=== PATIENT | male | born 1950 | race Native Hawaiian/Other Pacific Islander ===

== ENCOUNTER 2017-11-25 13:57 | Outpatient (CLI) | payer OTHER ==
[2017-11-25] MEDS ORDERED: DIAZEPAM10 MG PO (16:16)
[2017-11-25] MEDS ORDERED: NUCYNTA100 MG PO (16:16)
[2017-11-25] MEDS ORDERED: BENA20TA2 PO (16:17)
[2017-11-25] MEDS ORDERED: LEVO0.1224 PO (16:18)
[2017-11-25] MEDS ORDERED: ZANTAC300 MG PO (16:18)
[2017-11-25] MEDS ORDERED: POTASSIUM CHLO20 ME1 PO (16:19)
== END 2017-11-25 14:01 | disposition short-term general hospital (02) ==
LOC: AMB 13:57
DX: R55 Syncope and collapse (principal); R40.4 Transient alteration of awareness
CPT/HCPCS: A0425; A0427

== ENCOUNTER 2017-11-25 14:01 | Emergency (ER) | payer OTHER ==
[~2017-11-25] VITALS: Ht 175.3 cm; Wt 78.9 kg
[2017-11-25 14:52] LABS: PLATELET COUNT 351 K/uL (142-355)
[2017-11-25 15:02] LABS: POTASSIUM 3.5 mmol/L (3.6-5.2); SODIUM 136 mmol/L (136-145)
[2017-11-25 16:14] VITALS: BP 116/74; TEMP 97.9
[2017-11-25] MEDS ORDERED: DIAZEPAM10 MG PO (16:16)
[2017-11-25] MEDS ORDERED: NUCYNTA100 MG PO (16:16)
[2017-11-25] MEDS ORDERED: BENA20TA2 PO (16:17)
[2017-11-25] MEDS ORDERED: LEVO0.1224 PO (16:18)
[2017-11-25] MEDS ORDERED: ZANTAC300 MG PO (16:18)
[2017-11-25] MEDS ORDERED: POTASSIUM CHLO20 ME1 PO (16:19)
== END 2017-11-25 16:58 | disposition home or self-care (01) ==
LOC: ED 14:01
PROVIDERS: Family Medicine
DX: R40.0 Somnolence (principal); I45.81 Long QT syndrome; T50.901A Poisoning by unspecified drugs, medicaments and biological substances, accidental (unintentional), initial encounter; Y92.89 Other specified places as the place of occurrence of the external cause
CPT/HCPCS: 80053; 84484; 85027; 87804; 93005; 96374; 96375; 99283; J2310; J3490

== ENCOUNTER 2018-01-14 16:21 | Outpatient (CLI) | payer OTHER ==
[~2018-01-14 16:21] MED LIST: BENA20TA2 PO; DIAZEPAM10 MG PO; LEVO0.1224 PO; NUCYNTA100 MG PO; POTASSIUM CHLO20 ME1 PO; ZANTAC300 MG PO
[2018-01-14] MEDS ORDERED: ACID REDUCER150 MG PO (16:53)
[2018-01-14] MEDS ORDERED: MELOXICAM7.5 MG PO (16:53)
== END 2018-01-14 16:39 | disposition short-term general hospital (02) ==
LOC: AMB 16:21
DX: R07.81 Pleurodynia (principal); R68.84 Jaw pain; S61.412A Laceration without foreign body of left hand, initial encounter; M54.5 Low back pain; V49.88XA Car occupant (driver) (passenger) injured in other specified transport accidents, initial encounter; Y92.488 Other paved roadways as the place of occurrence of the external cause
CPT/HCPCS: A0425; A0427

== ENCOUNTER 2018-01-14 16:49 | Emergency (ER) | payer OTHER ==
[~2018-01-14] VITALS: Ht 172.7 cm; Wt 79.4 kg
[2018-01-14 16:40] VITALS: TEMP 98.1
[2018-01-14] MEDS ORDERED: ACID REDUCER150 MG PO (16:53)
[2018-01-14] MEDS ORDERED: MELOXICAM7.5 MG PO (16:53)
[2018-01-14 19:57] VITALS: BP 123/71
== END 2018-01-14 21:02 | disposition short-term general hospital (02) ==
LOC: ED 16:49
DX: S42.495A Other nondisplaced fracture of lower end of left humerus, initial encounter for closed fracture (principal); S22.018A Other fracture of first thoracic vertebra, initial encounter for closed fracture; S22.028A Other fracture of second thoracic vertebra, initial encounter for closed fracture; S02.642A Fracture of ramus of left mandible, initial encounter for closed fracture; S22.42XA Multiple fractures of ribs, left side, initial encounter for closed fracture; S12.691A Other nondisplaced fracture of seventh cervical vertebra, initial encounter for closed fracture; R10.84 Generalized abdominal pain; V49.3XXA Car occupant (driver) (passenger) injured in unspecified nontraffic accident, initial encounter; Y92.89 Other specified places as the place of occurrence of the external cause
CPT/HCPCS: 36415; 96374; 99284; J1885; Q9963

== ENCOUNTER 2018-01-14 21:06 | Outpatient (CLI) | payer OTHER ==
[~2018-01-14 21:06] MED LIST changes: +ACID REDUCER150 MG PO; +MELOXICAM7.5 MG PO
== END 2018-01-14 23:30 | disposition short-term general hospital (02) ==
LOC: AMB 21:06
DX: S42.495A Other nondisplaced fracture of lower end of left humerus, initial encounter for closed fracture (principal); S22.018A Other fracture of first thoracic vertebra, initial encounter for closed fracture; S22.028A Other fracture of second thoracic vertebra, initial encounter for closed fracture; S02.642A Fracture of ramus of left mandible, initial encounter for closed fracture; S22.42XA Multiple fractures of ribs, left side, initial encounter for closed fracture; S12.691A Other nondisplaced fracture of seventh cervical vertebra, initial encounter for closed fracture; R10.84 Generalized abdominal pain; V49.3XXA Car occupant (driver) (passenger) injured in unspecified nontraffic accident, initial encounter; Y92.89 Other specified places as the place of occurrence of the external cause
CPT/HCPCS: A0425; A0427

== ENCOUNTER 2018-03-16 22:10 | Outpatient (CLI) | payer OTHER | END 2018-03-16 23:40 | disposition home or self-care (01) | LOC: RAD 22:10 | DX: J94.8 Other specified pleural conditions (principal) ==

== ENCOUNTER 2018-04-17 16:44 | Emergency (ER) | payer OTHER ==
[~2018-04-17] VITALS: Ht 172.7 cm; Wt 81.6 kg
[2018-04-17 20:28] VITALS: BP 128/78; TEMP 98
== END 2018-04-17 20:28 | disposition home or self-care (01) ==
LOC: ED 16:44
PROC: 2W3DX1Z Immobilization of Left Lower Arm using Splint (ICD-10-PCS; principal; 2018-04-17)
DX: S52.92XA Unspecified fracture of left forearm, initial encounter for closed fracture (principal); W18.39XA Other fall on same level, initial encounter; Y92.89 Other specified places as the place of occurrence of the external cause
CPT/HCPCS: 99282; L3908